=== PATIENT | female | born 1975 | race Asian ===

== ENCOUNTER 2016-04-14 15:58 | Observation (INO) | payer OTHER ==
[~2016-04-14] VITALS: Ht 160 cm; Wt 115.2 kg
[~2016-04-14 15:58] MED LIST: AMLO10TA PO; ASA LO-DOSE81 MG PO; DILTIAZEM240 M1 PO; FERROUS SULF325 M1 PO; FLUC150T PO; FLUC200T PO; FURO20TA67 PO; GLIP10TA55 PO; GRALISE600 MG PO; GUIATUSS100 MG/5 M PO; HEMATINIC/FA OR; HYDR25TA60 PO; HYDROCHLOROT12.5 M1 PO; INSU100I2 SC; LANTUS100 MG/ML SC; LEVO0.0218 PO; LORTAB 7.5-3251 TAB PO; METF100038 PO; METF500T PO; NEXIUM40 M1 PO; OMEP40CA PO; PAXIL10 MG PO; SIMV20TA2 PO; SMZ-TMP DS1 TAB PO; TRAZ50TA36 PO
[2016-04-14 16:59] VITALS: BP 147/86; TEMP 98.3; Ht 160 cm; Wt 115.2 kg
[2016-04-14] MEDS ORDERED: HYDR10TA47 PO (17:44)
[2016-04-14 18:09] LABS: PLATELET COUNT 282 K/uL (152-353)
[2016-04-14 19:10] LABS: POTASSIUM 3.9 mmol/L (3.6-5.2); SODIUM 128 mmol/L (136-145)
[2016-04-14 19:35] LABS: PARTIAL THROMBOPLASTIN TIME 24.7 SECONDS (24.5-33.6)
[2016-04-14 20:00] VITALS: BP 135/73; TEMP 98.1
[2016-04-15] VITALS: BP 119/77; TEMP 98.2
[2016-04-15 04:00] VITALS: BP 148/75; TEMP 98
[2016-04-15 05:01] LABS: PLATELET COUNT 268 K/uL (152-353)
[2016-04-15 05:28] LABS: POTASSIUM 4.8 mmol/L (3.6-5.2); SODIUM 121 mmol/L (136-145)
[2016-04-15 08:00] VITALS: BP 135/80; TEMP 98.3
[2016-04-15 12:00] VITALS: BP 144/95; TEMP 98.4
== END 2016-04-15 16:20 | disposition home or self-care (01) ==
LOC: MED/SURG 15:58
PROVIDERS: ADMIT Family Medicine
DX: R07.9 Chest pain, unspecified (principal); E11.40 Type 2 diabetes mellitus with diabetic neuropathy, unspecified; J30.2 Other seasonal allergic rhinitis; L03.116 Cellulitis of left lower limb
CPT/HCPCS: 36415; 80053; 82550; 82948; 83735; 84484; 85027; 85610; 85730; 93005; 96372; 99220; G0378; G0379; J1650; J1815

== ENCOUNTER 2016-06-10 09:41 | Outpatient (CLI) | payer OTHER ==
[~2016-06-10 09:41] MED LIST changes: +HYDR10TA47 PO
== END 2016-06-10 21:02 | disposition home or self-care (01) ==
LOC: RAD 09:41
DX: M25.551 Pain in right hip (principal)

== ENCOUNTER 2016-07-09 12:36 | Outpatient (CLI) | payer OTHER | END 2016-07-09 19:22 | disposition home or self-care (01) | LOC: US 12:36 | DX: I74.2 Embolism and thrombosis of arteries of the upper extremities (principal) ==

== ENCOUNTER 2016-08-09 13:11 | Observation (INO) | payer OTHER ==
[~2016-08-09] VITALS: Ht 160 cm; Wt 111.8 kg
[2016-08-09 15:34] LABS: PLATELET COUNT 317 K/uL (152-353)
[2016-08-09 15:49] LABS: POTASSIUM 3.1 mmol/L (3.6-5.2); SODIUM 129 mmol/L (136-145)
[2016-08-09 17:28] VITALS: BP 140/95; TEMP 99.2; Ht 160 cm; Wt 111.8 kg
--- NOTE | 2016-08-09 17:50 | NUR ---
1445- PT IN ROOM 1114. NAD NOTED. PT ALERT AND ORIENTED. ASSESSMENT COMPLETE. PT STATES PAIN COMES AND GOES TO L STUMP. PT STATES SHE WAS ON PROSTHESIS A LOT THIS WEEKEND AND STUMP WAS VERY SORE. SEE WOUND ASSESSMENT. CULTURE DONE. IV STARTED TO R UPPER ARM PER ER STAFF. JESUS FROM [facility] CALLED TO SEE PT FOR WOUND CONSULT AND STATES SHE WILL COME SEE PT. INSTRUCTED PT ON NO WEIGHT BEARING ON STUMP AND TO CALL FOR ASSISTANCE. ORIENTED PT TO ROOM AND CONTROLS. PT VERBALIZED UNDERSTANDING. CALL LIGHT WITHIN REACH AND BED LOW.
[2016-08-09 20:00] VITALS: BP 158/99; TEMP 99.4
[2016-08-10] VITALS: BP 136/62; TEMP 99.5
[2016-08-10 04:00] VITALS: BP 133/84; TEMP 99.3
[2016-08-10 05:07] LABS: PLATELET COUNT 288 K/uL (152-353)
[2016-08-10 05:29] LABS: POTASSIUM 3.2 mmol/L (3.6-5.2); SODIUM 128 mmol/L (136-145)
[2016-08-10 08:00] VITALS: BP 148/74; TEMP 98
[2016-08-10 12:00] VITALS: BP 100/46; TEMP 97.8
--- NOTE | 2016-08-10 13:00 | NUR ---
WET DRESSING WITH MULTIDEX APPLIED TO L STUMP WOUND. COVERED WITH DRY FLUFF GAUZE. WRAPPED WITH KERLIX AND SECURED WITH TAPE. WOUND CARE ORDERS GIVEN PER SHIRLEY ANAND RN. STATED OK.
--- NOTE | 2016-08-10 13:15 | NUR ---
SPOKE WITH LUCILA HORTON LPN WITH [facility] DEPT REGARDING VERBAL ORDERS RECEIVED FROM DANIELA TAPIA NP WITH DR RIVER DISCHARGING PATIENT HOME WITH [facility]. CALLED YAJAIRA GRANADOS, RN NURSE WITH [facility] REGARDING ORDERS RECEIVED FOR PATIENT TO BE D/C HOME.
[2016-08-10 16:00] VITALS: BP 140/76; TEMP 98
--- NOTE | 2016-08-10 17:40 | NUR ---
IV ATTEMPTED X 3 UNSUCCESSFUL.
[2016-08-10 20:00] VITALS: BP 103/53; TEMP 98.9
[2016-08-11] VITALS: BP 97/56; TEMP 98.3
[2016-08-11 04:00] VITALS: BP 141/86; TEMP 98.4
--- NOTE | 2016-08-11 06:00 | NUR ---
DR. MCMAHON IN FOR PT EXAM. PT ASLEEP AND SNORING. AT BS.
[2016-08-11 08:00] VITALS: BP 123/82; TEMP 98.5
[2016-08-11 10:23] LABS: PLATELET COUNT 249 K/uL (152-353)
[2016-08-11 10:49] LABS: POTASSIUM 3.4 mmol/L (3.6-5.2); SODIUM 133 mmol/L (136-145)
[2016-08-11 12:00] VITALS: BP 128/75; TEMP 98.6
[2016-08-11 16:00] VITALS: BP 130/85; TEMP 98.6
[2016-08-11 20:00] VITALS: BP 109/53; TEMP 98.4
--- NOTE | 2016-08-11 23:42 | NUR ---
08/11/[id number] DR. MCMAHON GIVE PATIENT ORDERS TO BE DISCHARGED.PATIENT WILL RETURN IN AM FOR OUTPATIENT THERAPY OF ANTIBIOTIC TREATMENT.CC 08/01/16 2230 PT SIGNED DISCHARGE ORDERS.PT OUT VIA PRIVATE WHEELCAHIR WITH .CC
== END 2016-08-11 22:33 | disposition home or self-care (01) ==
LOC: MED/SURG 13:11
PROVIDERS: ADMIT Family Medicine
DX: L03.116 Cellulitis of left lower limb (principal); M54.40 Lumbago with sciatica, unspecified side; T14.8 Other injury of unspecified body region; E11.40 Type 2 diabetes mellitus with diabetic neuropathy, unspecified; B95.62 Methicillin resistant Staphylococcus aureus infection as the cause of diseases classified elsewhere; B96.1 Klebsiella pneumoniae [K. pneumoniae] as the cause of diseases classified elsewhere; B95.4 Other streptococcus as the cause of diseases classified elsewhere
CPT/HCPCS: 36415; 80053; 80202; 82948; 83735; 85027; 87040; 87070; 87077; 87185; 87186; 87205; 96365; 96366; 96367; 96372; 96375; 99220; G0378; G0379; J2175; J2550; J3370

== ENCOUNTER 2016-09-02 15:37 | Inpatient (IN) | payer OTHER ==
[~2016-09-02] VITALS: Ht 160 cm; Wt 110.2 kg
[2016-09-02 16:01] VITALS: BP 140/86; TEMP 99
[2016-09-02 17:10] VITALS: BP 133/71; TEMP 99
[2016-09-02 17:10] LABS: PLATELET COUNT 508 K/uL (152-353)
[2016-09-02 17:23] LABS: POTASSIUM 3.7 mmol/L (3.6-5.2); SODIUM 130 mmol/L (136-145)
[2016-09-02 18:33] VITALS: BP 130/64; TEMP 98.8
[2016-09-02 23:30] VITALS: BP 121/74; TEMP 99.4; Ht 160 cm; Wt 110.2 kg
[2016-09-03] VITALS: BP 107/49; TEMP 98.1
[2016-09-03 04:00] VITALS: BP 95/59; TEMP 97.8
[2016-09-03 08:00] VITALS: BP 132/69; TEMP 98
[2016-09-03 11:25] LABS: PLATELET COUNT 482 K/uL (152-353)
[2016-09-03 12:00] VITALS: BP 134/79; TEMP 98
[2016-09-03 12:46] LABS: POTASSIUM 3.6 mmol/L (3.6-5.2); SODIUM 131 mmol/L (136-145)
[2016-09-03 16:00] VITALS: BP 136/75; TEMP 96.8
[2016-09-03 20:00] VITALS: BP 139/82; TEMP 98
[2016-09-04] VITALS: BP 121/78; TEMP 97.8
[2016-09-04 04:00] VITALS: BP 117/58; TEMP 97.7
[2016-09-04 06:05] LABS: POTASSIUM 3.4 mmol/L (3.6-5.2); SODIUM 132 mmol/L (136-145)
[2016-09-04 06:31] LABS: PLATELET COUNT 440 K/uL (152-353)
[2016-09-04 08:00] VITALS: BP 118/71; TEMP 98.3
[2016-09-04 12:00] VITALS: BP 129/88; TEMP 96.6
[2016-09-04 16:00] VITALS: BP 131/84; TEMP 97.6
[2016-09-04 20:00] VITALS: BP 153/95; TEMP 98.3
[2016-09-05] VITALS: BP 123/62; TEMP 98.9
[2016-09-05 04:00] VITALS: TEMP 98
[2016-09-05 05:25] LABS: PLATELET COUNT 458 K/uL (152-353)
[2016-09-05 05:43] LABS: SODIUM 133 mmol/L (136-145)
[2016-09-05 08:28] VITALS: BP 136/66; TEMP 97.5
[2016-09-05 12:00] VITALS: BP 126/84; TEMP 98
[2016-09-05 16:00] VITALS: BP 146/77; TEMP 98.3
[2016-09-05 20:00] VITALS: BP 149/95; TEMP 99
[2016-09-06] VITALS: BP 106/55; TEMP 98.7
[2016-09-06 04:00] VITALS: BP 129/64; TEMP 98.5
[2016-09-06 06:02] LABS: PLATELET COUNT 435 K/uL (152-353)
[2016-09-06 06:34] LABS: POTASSIUM 3.6 mmol/L (3.6-5.2); SODIUM 132 mmol/L (136-145)
[2016-09-06 08:00] VITALS: BP 136/85; TEMP 98.3
[2016-09-06 12:00] VITALS: BP 154/64; TEMP 97.8
[2016-09-06 16:00] VITALS: BP 145/79; TEMP 98
[2016-09-06 20:20] VITALS: BP 114/57; TEMP 98.8
[2016-09-07] VITALS: BP 145/56; TEMP 98.3
[2016-09-07 04:00] VITALS: BP 157/103; TEMP 97.6
[2016-09-07 05:12] LABS: PLATELET COUNT 484 K/uL (152-353)
[2016-09-07 05:31] LABS: SODIUM 132 mmol/L (136-145)
[2016-09-07 08:00] VITALS: BP 134/69; TEMP 97.6
[2016-09-07 12:00] VITALS: BP 133/67; TEMP 98.6
== END 2016-09-07 16:45 | disposition home or self-care (01) | DRG 638 ==
LOC: ED 15:37 → MED/SURG 18:40
PROVIDERS: Emergency Medicine
PROC: 02HV33Z Insertion of Infusion Device into Superior Vena Cava, Percutaneous Approach (ICD-10-PCS; principal; 2016-09-07)
DX: E11.628 Type 2 diabetes mellitus with other skin complications (principal); L03.116 Cellulitis of left lower limb; N39.0 Urinary tract infection, site not specified; M86.8X8 Other osteomyelitis, other site; B95.62 Methicillin resistant Staphylococcus aureus infection as the cause of diseases classified elsewhere; Z79.4 Long term (current) use of insulin; B96.20 Unspecified Escherichia coli [E. coli] as the cause of diseases classified elsewhere; I10 Essential (primary) hypertension; E11.69 Type 2 diabetes mellitus with other specified complication
CPT/HCPCS: 36415; 36571; 80048; 80053; 80202; 81000; 82947; 82948; 83036; 83605; 83735; 85027; 85651; 87040; 87070; 87077; 87086; 87088; 87185; 87186; 87205; 96372; 99283; A9576; C1751; J1200; J1650; J1885; J2405; J3370; J3490

== ENCOUNTER 2016-09-08 08:59 | Outpatient (CLI) | payer OTHER ==
[~2016-09-08] VITALS: Ht 160 cm; Wt 109.8 kg
== END 2016-09-08 23:20 | disposition home or self-care (01) ==
LOC: INF 08:59
DX: M86.8X8 Other osteomyelitis, other site (principal)
CPT/HCPCS: 96365; 96366; 96375; J1642; J2001; J3370

== ENCOUNTER 2016-09-09 08:07 | Outpatient (CLI) | payer OTHER ==
[~2016-09-09] VITALS: Ht 160 cm; Wt 109.8 kg
== END 2016-09-09 19:59 | disposition home or self-care (01) ==
LOC: INF 08:07
DX: M86.8X8 Other osteomyelitis, other site (principal)
CPT/HCPCS: 36591; 80202; 96365; 96366; 96375; J1642; J3370

== ENCOUNTER 2016-09-10 08:48 | Outpatient (CLI) | payer OTHER ==
[~2016-09-10] VITALS: Ht 160 cm; Wt 109.8 kg
== END 2016-09-10 22:56 | disposition home or self-care (01) ==
LOC: INF 08:48
DX: M86.8X8 Other osteomyelitis, other site (principal)
CPT/HCPCS: 96365; 96366; 96375; 96376; J1642; J3370

== ENCOUNTER 2016-09-11 08:32 | Outpatient (CLI) | payer OTHER | END 2016-09-11 19:06 | disposition home or self-care (01) | LOC: INF 08:32 | DX: M86.8X8 Other osteomyelitis, other site (principal) | CPT/HCPCS: 96365; 96366; 96375 ==

== ENCOUNTER 2016-09-12 08:31 | Outpatient (CLI) | payer OTHER | END 2016-09-12 18:59 | disposition home or self-care (01) | LOC: INF 08:31 | DX: M86.8X8 Other osteomyelitis, other site (principal) | CPT/HCPCS: 96365; 96366; 96375; J1642 ==

== ENCOUNTER 2016-09-13 07:39 | Outpatient (CLI) | payer OTHER ==
[~2016-09-13] VITALS: Ht 160 cm; Wt 109.8 kg
== END 2016-09-13 22:30 | disposition home or self-care (01) ==
LOC: LAB 07:39 → INF 07:39
DX: M86.8X8 Other osteomyelitis, other site (principal)
CPT/HCPCS: 96365; 96366; 96375; 96376; J1642; J3370

== ENCOUNTER 2016-09-14 07:22 | Outpatient (CLI) | payer OTHER ==
[~2016-09-14] VITALS: Ht 160 cm; Wt 109.8 kg
== END 2016-09-14 22:00 | disposition home or self-care (01) ==
LOC: INF 07:22
DX: M86.8X8 Other osteomyelitis, other site (principal)
CPT/HCPCS: 36415; 80202; 96365; 96366; 96375; 96376; J1642; J3370

== ENCOUNTER 2016-09-15 08:05 | Outpatient (CLI) | payer OTHER | END 2016-09-15 19:30 | disposition home or self-care (01) | LOC: INF 08:05 | DX: M86.8X8 Other osteomyelitis, other site (principal) | CPT/HCPCS: 96365; 96366; 96375; 96376; J3370 ==

== ENCOUNTER 2016-09-16 08:14 | Outpatient (CLI) | payer OTHER ==
[~2016-09-16] VITALS: Ht 160 cm; Wt 109.8 kg
[2016-09-16 09:45] LABS: PLATELET COUNT 378 K/uL (152-353)
[2016-09-16 09:55] LABS: POTASSIUM 3.7 mmol/L (3.6-5.2); SODIUM 134 mmol/L (136-145)
== END 2016-09-16 09:57 | disposition home or self-care (01) ==
LOC: INF 08:14
PROVIDERS: Internal Medicine
DX: M86.8X8 Other osteomyelitis, other site (principal)
CPT/HCPCS: 36591; 80048; 80202; 85027; J1642; J3370

== ENCOUNTER 2016-09-17 08:06 | Outpatient (CLI) | payer OTHER ==
[~2016-09-17] VITALS: Ht 160 cm; Wt 109.8 kg
== END 2016-09-17 19:03 | disposition home or self-care (01) ==
LOC: INF 08:06
DX: M86.8X8 Other osteomyelitis, other site (principal)
CPT/HCPCS: 36415; 80202; 96365; 96366; 96375; 96376; J3370

== ENCOUNTER 2016-09-18 07:49 | Outpatient (CLI) | payer OTHER ==
[~2016-09-18] VITALS: Ht 160 cm; Wt 109.8 kg
== END 2016-09-18 22:59 | disposition home or self-care (01) ==
LOC: INF 07:49
DX: M86.8X8 Other osteomyelitis, other site (principal)
CPT/HCPCS: 36415; 80202; 96365; 96366; 96375; 96376; J1642; J3370

== ENCOUNTER 2016-09-19 07:43 | Outpatient (CLI) | payer OTHER ==
[~2016-09-19] VITALS: Ht 160 cm; Wt 109.8 kg
== END 2016-09-19 09:40 | disposition home or self-care (01) ==
LOC: INF 07:43
DX: M86.8X8 Other osteomyelitis, other site (principal)
CPT/HCPCS: 96365; 96366; 96375; 96376; J1642; J3370

== ENCOUNTER 2016-09-20 08:05 | Outpatient (CLI) | payer OTHER ==
[~2016-09-20] VITALS: Ht 160 cm; Wt 109.8 kg
== END 2016-09-20 22:00 | disposition home or self-care (01) ==
LOC: INF 08:05
DX: M86.8X8 Other osteomyelitis, other site (principal)
CPT/HCPCS: 96365; 96366; 96375; J1642; J3370

== ENCOUNTER 2016-09-21 07:44 | Outpatient (CLI) | payer OTHER ==
[~2016-09-21] VITALS: Ht 160 cm; Wt 109.8 kg
== END 2016-09-21 09:40 | disposition home or self-care (01) ==
LOC: INF 07:44
DX: M86.8X8 Other osteomyelitis, other site (principal)
CPT/HCPCS: J1642; J3370

== ENCOUNTER 2016-09-22 13:15 | Outpatient (CLI) | payer OTHER ==
[2016-09-22 13:35] VITALS: BP 131/85; TEMP 98.3
== END 2016-09-22 19:05 | disposition home or self-care (01) ==
LOC: INF 13:15
DX: M86.8X8 Other osteomyelitis, other site (principal)
CPT/HCPCS: 87070

== ENCOUNTER 2016-10-07 15:00 | Outpatient (CLI) | payer OTHER ==
[2016-10-07 15:45] LABS: PLATELET COUNT 314 K/uL (152-353)
[2016-10-07 15:48] LABS: POTASSIUM 2.7 mmol/L (3.6-5.2); SODIUM 132 mmol/L (136-145)
== END 2016-10-07 19:19 | disposition home or self-care (01) ==
LOC: LABW 15:00
PROVIDERS: Surgery Vascular Surgery
DX: Z01.810 Encounter for preprocedural cardiovascular examination (principal); Z01.811 Encounter for preprocedural respiratory examination; Z01.812 Encounter for preprocedural laboratory examination
CPT/HCPCS: 36415; 80048; 85027; 93005

== ENCOUNTER 2016-11-12 20:12 | Emergency (ER) | payer OTHER ==
[~2016-11-12] VITALS: Ht 160 cm; Wt 111.6 kg
[2016-11-12 20:30] VITALS: BP 118/110; TEMP 98
== END 2016-11-12 21:23 | disposition home or self-care (01) ==
LOC: ED 20:12
DX: R21 Rash and other nonspecific skin eruption (principal)
CPT/HCPCS: 99281

== ENCOUNTER 2016-12-02 03:56 | Emergency (ER) | payer OTHER ==
[~2016-12-02] VITALS: Ht 160 cm; Wt 113.4 kg
[2016-12-02 04:19] VITALS: TEMP 97.9
[2016-12-02 05:15] LABS: PLATELET COUNT 340 K/uL (152-353)
[2016-12-02 05:26] LABS: POTASSIUM 3.7 mmol/L (3.6-5.2); SODIUM 129 mmol/L (136-145)
[2016-12-02 05:45] LABS: PARTIAL THROMBOPLASTIN TIME 25.1 SECONDS (24.5-33.6)
[2016-12-02 09:58] VITALS: BP 132/82
== END 2016-12-02 10:02 | disposition home or self-care (01) ==
LOC: ED 03:56
PROVIDERS: Specialist
DX: D25.9 Leiomyoma of uterus, unspecified (principal); E11.9 Type 2 diabetes mellitus without complications
CPT/HCPCS: 36415; 74022; 80048; 81002; 85027; 85610; 85730; 96374; 96375; 99284; J2175; J2550; J3490

== ENCOUNTER 2016-12-30 11:29 | Emergency (ER) | payer OTHER ==
[~2016-12-30] VITALS: Ht 160 cm; Wt 118.4 kg
[2016-12-30 11:45] VITALS: TEMP 98.2
[2016-12-30 12:33] VITALS: BP 162/96
== END 2016-12-30 12:34 | disposition home or self-care (01) ==
LOC: ED 11:29
DX: S60.812A Abrasion of left wrist, initial encounter (principal); W54.0XXA Bitten by dog, initial encounter; Y93.F2 Activity, caregiving, lifting; Y92.018 Other place in single-family (private) house as the place of occurrence of the external cause; Y99.0 Civilian activity done for income or pay
CPT/HCPCS: 99282

== ENCOUNTER 2017-01-26 16:10 | Outpatient (CLI) | payer OTHER | END 2017-01-26 19:03 | disposition home or self-care (01) | LOC: RAD 16:10 | DX: M25.551 Pain in right hip (principal) ==

== ENCOUNTER 2017-02-21 14:30 | Outpatient (CLI) | payer OTHER | END 2017-02-21 15:30 | disposition home or self-care (01) | LOC: RAD 14:30 | DX: M16.0 Bilateral primary osteoarthritis of hip (principal); Z79.899 Other long term (current) drug therapy; Z13.820 Encounter for screening for osteoporosis; Z78.0 Asymptomatic menopausal state ==

== ENCOUNTER 2017-03-25 11:27 | Observation (INO) | payer OTHER ==
[~2017-03-25] VITALS: Ht 160 cm; Wt 114.9 kg
[2017-03-25] VITALS (9 sets, daily range): BP systolic 141–194; BP diastolic 73–146; TEMP 98.2–99.7; Ht 160 cm; Wt 114.9 kg
[2017-03-25 13:52] LABS: PLATELET COUNT 265 K/uL (152-353); POTASSIUM 3.6 mmol/L (3.6-5.2); SODIUM 132 mmol/L (136-145)
[2017-03-25 14:05] LABS: PARTIAL THROMBOPLASTIN TIME 25.2 SECONDS (24.5-33.6)
[2017-03-25] MEDS ORDERED: NYST100010 EX (18:11)
[2017-03-25] MEDS ORDERED: TRIA0.1C19 TOP (18:11)
[2017-03-25] MEDS ORDERED: CETIRIZINE10 MG PO (18:12)
[2017-03-25] MEDS ORDERED: DILTIAZEM HCL180 M2 PO (18:12)
[2017-03-26] VITALS: BP 132/65; TEMP 99.6
[2017-03-26 04:00] VITALS: BP 164/100; TEMP 98.6
--- NOTE | 2017-03-26 05:19 | NUR ---
PATIENT HAVING NAUSEA. GLUCOSE CHECK 202. IV PRN MEDICATION GIVEN AT THIS TIME.
--- NOTE | 2017-03-26 05:36 | NUR ---
PATIENT COUGHING THICK LIGHT GREEN SPUTUM INDUCING EMESIS. PRN PHENERGAN GIVEN ORDERED PATIENT TOLERATED WELL.
--- NOTE | 2017-03-26 05:53 | NUR ---
PATIENT NOTED HOARSE WHEN SHE TALKS. ASSESSED THROAT, +2-+3 TONSILS NOTED. NO EXUDATE NOTED. PATIENT DENIES ANY PAIN WHEN SWALLOWING.
[2017-03-26 08:00] VITALS: BP 120/67; TEMP 98.7
[2017-03-26 09:13] LABS: PLATELET COUNT 245 K/uL (152-353)
[2017-03-26 09:58] LABS: POTASSIUM 3.3 mmol/L (3.6-5.2); SODIUM 134 mmol/L (136-145)
[2017-03-26 12:00] VITALS: BP 124/70; TEMP 98.6
[2017-03-26 16:00] VITALS: BP 126/63; TEMP 99.3
--- NOTE | 2017-03-26 17:10 | NUR ---
IV D/C'DJr FU WITH DR. MCMAHON IN 3-5 DAYS. PRESCRIPTION FOR CARAFATE GIVEN. PT HAS NO FUTHER QUESTIONS. PT WHEELED OUT VIA W/C AT THIS TIME. NO PROBLEMS NOTED.
== END 2017-03-26 17:10 | disposition home or self-care (01) ==
LOC: ED 11:27 → MED/SURG 15:00
PROVIDERS: ADMIT Emergency Medicine
DX: R07.89 Other chest pain (principal); E03.8 Other specified hypothyroidism; K21.9 Gastro-esophageal reflux disease without esophagitis; E10.9 Type 1 diabetes mellitus without complications; Z79.4 Long term (current) use of insulin; F41.8 Other specified anxiety disorders
CPT/HCPCS: 36415; 80053; 81000; 82550; 82553; 82947; 82948; 83735; 84443; 84484; 85027; 85610; 85730; 93005; 96372; 96374; 96375; 99220; 99284; G0378; J1815; J1885; J2360

== ENCOUNTER 2017-05-27 13:09 | Outpatient (CLI) | payer OTHER ==
[~2017-05-27 13:09] MED LIST changes: +CETIRIZINE10 MG PO; +DILTIAZEM HCL180 M2 PO; +NYST100010 EX; +TRIA0.1C19 TOP
[2017-05-27 13:50] LABS: PLATELET COUNT 303 K/uL (152-353)
[2017-05-27 14:31] LABS: POTASSIUM 3.7 mmol/L (3.6-5.2)
== END 2017-05-27 21:28 | disposition home or self-care (01) ==
LOC: LABW 13:09
PROVIDERS: Family Medicine
DX: L02.419 Cutaneous abscess of limb, unspecified (principal)
CPT/HCPCS: 36415; 80053; 85027; 87040; 87070; 87205

== ENCOUNTER 2017-06-03 13:27 | Outpatient (CLI) | payer OTHER | END 2017-06-03 18:00 | disposition home or self-care (01) | LOC: RAD 13:27 | DX: R05 Cough (principal) ==

== ENCOUNTER 2017-06-26 05:21 | Emergency (ER) | payer OTHER ==
[~2017-06-26] VITALS: Ht 160 cm; Wt 116.1 kg
[2017-06-26 06:09] VITALS: BP 171/109; TEMP 98.7
== END 2017-06-26 06:12 | disposition home or self-care (01) ==
LOC: ED 05:21
DX: M79.604 Pain in right leg (principal); R22.41 Localized swelling, mass and lump, right lower limb
CPT/HCPCS: 99281

== ENCOUNTER 2017-07-21 00:18 | Emergency (ER) | payer OTHER ==
[~2017-07-21] VITALS: Ht 160 cm; Wt 111.6 kg
[2017-07-21 00:21] VITALS: BP 154/75; TEMP 99.1
[2017-07-21 01:08] LABS: PLATELET COUNT 300 K/uL (152-353)
[2017-07-21 01:21] LABS: POTASSIUM 3.8 mmol/L (3.6-5.2)
== END 2017-07-21 01:56 | disposition home or self-care (01) ==
LOC: ED 00:18
DX: T87.81 Dehiscence of amputation stump (principal)
CPT/HCPCS: 36415; 80053; 83605; 85027; 87070; 87205; 99283

== ENCOUNTER 2017-08-05 13:42 | Emergency (ER) | payer OTHER | END 2017-08-05 13:55 | disposition home or self-care (01) | LOC: ED 13:42 | DX: L08.89 Other specified local infections of the skin and subcutaneous tissue (principal) | CPT/HCPCS: 99281 ==

== ENCOUNTER 2017-12-07 11:24 | Outpatient (CLI) | payer OTHER ==
[2017-12-07 12:52] LABS: POTASSIUM 3.3 mmol/L (3.6-5.2)
== END 2017-12-07 19:40 | disposition home or self-care (01) ==
LOC: RAD 11:24
PROVIDERS: Family Medicine
DX: M25.461 Effusion, right knee (principal)
CPT/HCPCS: 36415; 80053; 84550; 85651; 86140; 87040

== ENCOUNTER 2018-01-09 11:05 | Emergency (ER) | payer OTHER ==
[~2018-01-09] VITALS: Ht 160 cm; Wt 112.9 kg
[2018-01-09 12:24] VITALS: BP 153/90; TEMP 97.7
== END 2018-01-09 12:25 | disposition home or self-care (01) ==
LOC: ED 11:05
DX: T81.49XA Infection following a procedure, other surgical site, initial encounter (principal); Z89.512 Acquired absence of left leg below knee; W05.0XXA Fall from non-moving wheelchair, initial encounter; Y92.89 Other specified places as the place of occurrence of the external cause
CPT/HCPCS: 99282; J7040

== ENCOUNTER 2018-02-07 11:18 | Outpatient (CLI) | payer OTHER ==
[2018-02-07 20:39] LABS: PLATELET COUNT 286 K/uL (152-353)
[2018-02-07 20:59] LABS: POTASSIUM 4.1 mmol/L (3.6-5.2)
== END 2018-02-07 22:26 | disposition home or self-care (01) ==
LOC: INF 11:18
PROVIDERS: Family Medicine
DX: L03.119 Cellulitis of unspecified part of limb (principal)
CPT/HCPCS: 36415; 36591; 80053; 83605; 85027; 96365; J3370

== ENCOUNTER 2018-02-08 07:44 | Outpatient (CLI) | payer OTHER ==
[~2018-02-08] VITALS: Ht 160 cm; Wt 127.0 kg
== END 2018-02-08 19:34 | disposition home or self-care (01) ==
LOC: INF 07:44
DX: L03.119 Cellulitis of unspecified part of limb (principal)
CPT/HCPCS: 96365; 96366; J3370

== ENCOUNTER 2018-02-09 07:54 | Outpatient (CLI) | payer OTHER | END 2018-02-09 19:09 | disposition home or self-care (01) | LOC: INF 07:54 | DX: L03.119 Cellulitis of unspecified part of limb (principal) | CPT/HCPCS: 96365; 96366; J3370 ==

== ENCOUNTER 2018-02-10 07:56 | Outpatient (CLI) | payer OTHER | END 2018-02-10 19:07 | disposition home or self-care (01) | LOC: INF 07:56 | DX: L03.119 Cellulitis of unspecified part of limb (principal) | CPT/HCPCS: 96365; 96366; J3370 ==

== ENCOUNTER 2018-02-11 08:12 | Outpatient (CLI) | payer OTHER | END 2018-02-11 22:17 | disposition home or self-care (01) | LOC: INF 08:12 | DX: L03.119 Cellulitis of unspecified part of limb (principal) | CPT/HCPCS: 96365; 96366; J3370 ==

== ENCOUNTER 2018-02-12 08:19 | Outpatient (CLI) | payer OTHER ==
[~2018-02-12] VITALS: Ht 160 cm; Wt 115.7 kg
== END 2018-02-12 21:31 | disposition home or self-care (01) ==
LOC: INF 08:19
DX: L03.119 Cellulitis of unspecified part of limb (principal)
CPT/HCPCS: 36415; 80202; J3370

== ENCOUNTER 2018-03-06 07:40 | Outpatient (CLI) | payer OTHER | END 2018-03-06 18:59 | disposition home or self-care (01) | LOC: MRI 07:40 | DX: M54.17 Radiculopathy, lumbosacral region (principal) ==

== ENCOUNTER 2018-06-05 13:19 | Outpatient (CLI) | payer OTHER ==
[2018-06-05 14:20] LABS: PLATELET COUNT 381 K/uL (152-353)
[2018-06-05 14:33] LABS: POTASSIUM 4.1 mmol/L (3.6-5.2)
== END 2018-06-05 22:46 | disposition home or self-care (01) ==
LOC: LABW 13:19
PROVIDERS: Specialist
DX: R07.2 Precordial pain (principal); Z01.810 Encounter for preprocedural cardiovascular examination; R93.1 Abnormal findings on diagnostic imaging of heart and coronary circulation
CPT/HCPCS: 36415; 80053; 85027

== ENCOUNTER 2018-06-24 14:47 | Emergency (ER) | payer OTHER ==
[~2018-06-24] VITALS: Ht 160 cm; Wt 116.1 kg
[2018-06-24 16:15] VITALS: BP 210/98; TEMP 97.7
== END 2018-06-24 16:15 | disposition home or self-care (01) ==
LOC: ED 14:47
DX: J01.80 Other acute sinusitis (principal); J30.89 Other allergic rhinitis; I10 Essential (primary) hypertension
CPT/HCPCS: 96372; 99283; J0696; J1200

== ENCOUNTER 2018-07-13 08:54 | Outpatient (CLI) | payer OTHER | END 2018-07-13 21:00 | disposition home or self-care (01) | LOC: CT 08:54 | DX: J32.8 Other chronic sinusitis (principal) ==

== ENCOUNTER 2018-08-06 14:07 | Emergency (ER) | payer OTHER ==
[~2018-08-06] VITALS: Ht 160 cm; Wt 125.2 kg
[2018-08-06 14:16] VITALS: BP 139/78; TEMP 97.8
== END 2018-08-06 16:06 | disposition home or self-care (01) ==
LOC: ED 14:07
DX: M54.89 Other dorsalgia (principal); G89.29 Other chronic pain; M19.90 Unspecified osteoarthritis, unspecified site
CPT/HCPCS: 96372; 99283; J1885

== ENCOUNTER 2018-08-07 15:08 | Outpatient (CLI) | payer OTHER ==
[~2018-08-07] VITALS: Ht 160 cm; Wt 124.3 kg
[2018-08-07 16:54] LABS: PLATELET COUNT 291 K/uL (152-353)
[2018-08-07 17:00] VITALS: BP 170/83; TEMP 98.4
[2018-08-07 17:33] LABS: POTASSIUM 3.7 mmol/L (3.6-5.2)
== END 2018-08-07 19:22 | disposition home or self-care (01) ==
LOC: INF 15:08
PROVIDERS: Family Medicine
DX: E86.0 Dehydration (principal)
CPT/HCPCS: 80053; 85027; 96360; 96361

== ENCOUNTER 2018-08-08 09:05 | Outpatient (CLI) | payer OTHER | END 2018-08-08 19:19 | disposition home or self-care (01) | LOC: US 09:05 | DX: R33.8 Other retention of urine (principal) ==

== ENCOUNTER 2018-08-17 07:56 | Outpatient (CLI) | payer OTHER | END 2018-08-17 19:14 | disposition home or self-care (01) | LOC: NM 07:56 | DX: R11.2 Nausea with vomiting, unspecified (principal); R33.8 Other retention of urine | CPT/HCPCS: A9541 ==

== ENCOUNTER 2018-08-24 11:31 | Outpatient (CLI) | payer OTHER | END 2018-08-24 23:48 | disposition home or self-care (01) | LOC: RAD 11:31 | DX: R05 Cough (principal) ==

== ENCOUNTER 2018-08-26 12:27 | Outpatient (CLI) | payer OTHER | END 2018-08-26 22:38 | disposition home or self-care (01) | LOC: LAB 12:27 | DX: E11.22 Type 2 diabetes mellitus with diabetic chronic kidney disease (principal) | CPT/HCPCS: 84156 ==

== ENCOUNTER 2018-10-10 10:20 | Outpatient (CLI) | payer OTHER ==
[2018-10-10 10:51] LABS: PLATELET COUNT 361 K/uL (152-353)
[2018-10-10 11:20] LABS: POTASSIUM 3.5 mmol/L (3.6-5.2)
== END 2018-10-10 22:30 | disposition home or self-care (01) ==
LOC: LABW 10:20
PROVIDERS: Internal Medicine
DX: N18.3 Chronic kidney disease, stage 3 (moderate) (principal); E11.22 Type 2 diabetes mellitus with diabetic chronic kidney disease; E03.8 Other specified hypothyroidism; R80.1 Persistent proteinuria, unspecified; D64.89 Other specified anemias
CPT/HCPCS: 36415; 80053; 81000; 82306; 82330; 82570; 82607; 82652; 82728; 82746; 83036; 83516; 83540; 83550; 83735; 83970; 84100; 84155; 84439; 84443; 85027; 85651; 86225; 86255; 87077; 87086; 87088; 87186

== ENCOUNTER 2018-11-14 23:24 | Observation (INO) | payer OTHER ==
[~2018-11-14] VITALS: Ht 160 cm; Wt 120.3 kg
[2018-11-14 23:35] VITALS: BP 95/52; TEMP 97.5
[2018-11-14] MEDS ORDERED: HUMALOG JU100 UNIT/M SC (23:55)
[2018-11-14] MEDS ORDERED: TRESIBA FL200 UNIT/M SC (23:55)
[2018-11-14] MEDS ORDERED: HYDROXYZINE HYD25 MG PO (23:56)
[2018-11-14] MEDS ORDERED: GRALISE600 MG PO (23:56)
[2018-11-14] MEDS ORDERED: NUCYNTA ER100 MG PO (23:56)
[2018-11-14] MEDS ORDERED: CHLORTHALID25 MG PO (23:57)
[2018-11-14] MEDS ORDERED: DIPH25CA90 PO (23:57)
[2018-11-14] MEDS ORDERED: COZAAR100 MG PO (23:57)
[2018-11-14] MEDS ORDERED: METOCLOPRAM5 MG PO (23:58)
[2018-11-14] MEDS ORDERED: CARTIA XT180 MG PO (23:58)
[2018-11-14] MEDS ORDERED: PANTOPRAZOLE 40MG TA PO (23:59)
[2018-11-15 00:39] LABS: PLATELET COUNT 300 K/uL (152-353)
[2018-11-15 01:07] LABS: POTASSIUM 3.1 mmol/L (3.6-5.2); SODIUM 133 mmol/L (136-145)
[2018-11-15 01:10] LABS: PARTIAL THROMBOPLASTIN TIME 25.7 SECONDS (24.5-33.6)
[2018-11-15 03:00] VITALS: BP 123/73; TEMP 99; Ht 160 cm; Wt 120.3 kg
[2018-11-15 04:00] VITALS: BP 123/73; TEMP 99
[2018-11-15 08:00] VITALS: BP 101/51; TEMP 98.2
[2018-11-15 09:03] LABS: POTASSIUM 3.4 mmol/L (3.6-5.2)
[2018-11-15 09:05] LABS: PLATELET COUNT 300 K/uL (152-353)
[2018-11-15] MEDS ORDERED: HUMALOG KW200 UNIT/M SC (09:07)
[2018-11-15 12:00] VITALS: BP 118/50; TEMP 97.4
== END 2018-11-15 15:30 | disposition home or self-care (01) ==
LOC: ED 23:24 → MED/SURG 11-15 01:40
PROVIDERS: Family Medicine; ADMIT Hospitalist
DX: N39.0 Urinary tract infection, site not specified (principal); E86.0 Dehydration; N28.9 Disorder of kidney and ureter, unspecified; R00.0 Tachycardia, unspecified; R53.1 Weakness; R42 Dizziness and giddiness; I10 Essential (primary) hypertension; E11.9 Type 2 diabetes mellitus without complications; Z89.512 Acquired absence of left leg below knee; I51.7 Cardiomegaly; E78.00 Pure hypercholesterolemia, unspecified; R19.7 Diarrhea, unspecified
CPT/HCPCS: 36415; 80053; 80320; 81000; 81025; 83605; 83880; 84484; 85027; 85610; 85730; 87077; 87086; 87088; 87186; 93005; 96360; 96365; 96366; 96372; 99220; 99284; G0378; J1650

== ENCOUNTER 2018-11-27 12:55 | Outpatient (CLI) | payer OTHER ==
[~2018-11-27 12:55] MED LIST changes: +CARTIA XT180 MG PO; +CHLORTHALID25 MG PO; +COZAAR100 MG PO; +DIPH25CA90 PO; +HUMALOG JU100 UNIT/M SC; +HUMALOG KW200 UNIT/M SC; +HYDROXYZINE HYD25 MG PO; +METOCLOPRAM5 MG PO; +NUCYNTA ER100 MG PO; +PANTOPRAZOLE 40MG TA PO; +TRESIBA FL200 UNIT/M SC
== END 2018-11-27 22:40 | disposition home or self-care (01) ==
LOC: CT 12:55
DX: R20.2 Paresthesia of skin (principal)

== ENCOUNTER 2018-12-18 13:21 | Outpatient (CLI) | payer OTHER | END 2018-12-18 19:44 | disposition home or self-care (01) | LOC: CT 13:21 | DX: R20.2 Paresthesia of skin (principal) ==

== ENCOUNTER 2019-01-16 20:34 | Emergency (ER) | payer OTHER ==
[~2019-01-16] VITALS: Ht 160 cm; Wt 120.2 kg
[2019-01-16 21:39] VITALS: BP 179/87; TEMP 98.8
== END 2019-01-16 21:39 | disposition home or self-care (01) ==
LOC: ED 20:34
DX: S33.5XXA Sprain of ligaments of lumbar spine, initial encounter (principal); W19.XXXA Unspecified fall, initial encounter; Y93.89 Activity, other specified; Y92.018 Other place in single-family (private) house as the place of occurrence of the external cause
CPT/HCPCS: 96372; 99283

== ENCOUNTER 2019-01-22 15:42 | Outpatient (CLI) | payer OTHER ==
[2019-01-22 16:40] LABS: PLATELET COUNT 295 K/uL (152-353)
[2019-01-22 16:56] LABS: POTASSIUM 3.6 mmol/L (3.6-5.2)
== END 2019-01-22 19:10 | disposition home or self-care (01) ==
LOC: LABW 15:42
PROVIDERS: Internal Medicine
DX: E03.8 Other specified hypothyroidism (principal); E11.22 Type 2 diabetes mellitus with diabetic chronic kidney disease; N18.3 Chronic kidney disease, stage 3 (moderate); R80.1 Persistent proteinuria, unspecified; D64.89 Other specified anemias; E53.8 Deficiency of other specified B group vitamins
CPT/HCPCS: 36415; 80053; 81000; 82306; 82330; 82570; 82607; 82652; 82728; 82746; 83036; 83516; 83540; 83550; 83735; 83970; 84100; 84155; 84439; 84443; 85027; 85651; 86038; 86225; 86235; 86255; 87077; 87086; 87088; 87186

== ENCOUNTER 2019-02-02 12:03 | Outpatient (CLI) | payer OTHER | END 2019-02-02 19:12 | disposition home or self-care (01) | LOC: RAD 12:03 | DX: M25.561 Pain in right knee (principal) ==

== ENCOUNTER 2019-02-12 12:59 | Outpatient (CLI) | payer OTHER | END 2019-02-12 19:27 | disposition home or self-care (01) | LOC: RAD 12:59 | DX: M25.551 Pain in right hip (principal) ==

== ENCOUNTER 2019-02-26 13:52 | Outpatient (CLI) | payer OTHER | END 2019-02-26 19:06 | disposition home or self-care (01) | LOC: CT 13:52 | DX: M25.551 Pain in right hip (principal) ==

== ENCOUNTER 2019-03-15 00:26 | Emergency (ER) | payer OTHER ==
[~2019-03-15] VITALS: Ht 160 cm; Wt 128.8 kg
[2019-03-15 00:26] VITALS: BP 133/64; TEMP 98.8
[2019-03-15 01:16] LABS: PLATELET COUNT 271 K/uL (152-353)
[2019-03-15 01:33] LABS: POTASSIUM 3.1 mmol/L (3.6-5.2)
== END 2019-03-15 01:19 | disposition home or self-care (01) ==
LOC: ED 00:26
PROVIDERS: Emergency Medicine
DX: R10.31 Right lower quadrant pain (principal)
CPT/HCPCS: 36415; 80053; 82150; 83690; 85027; 96374; 99284; J1885

== ENCOUNTER 2019-03-20 14:34 | Outpatient (CLI) | payer OTHER | END 2019-03-20 20:12 | disposition home or self-care (01) | LOC: LABW 14:34 | DX: R19.03 Right lower quadrant abdominal swelling, mass and lump (principal); D39.11 Neoplasm of uncertain behavior of right ovary; R79.89 Other specified abnormal findings of blood chemistry | CPT/HCPCS: 36415; 82378; 86304 ==

== ENCOUNTER 2019-03-26 14:13 | Outpatient (CLI) | payer OTHER ==
[2019-03-26 14:38] LABS: PLATELET COUNT 372 K/uL (152-353)
[2019-03-26 14:48] LABS: POTASSIUM 4.5 mmol/L (3.6-5.2)
== END 2019-03-26 22:36 | disposition home or self-care (01) ==
LOC: LABW 14:13
PROVIDERS: Internal Medicine
DX: E11.22 Type 2 diabetes mellitus with diabetic chronic kidney disease (principal); N18.3 Chronic kidney disease, stage 3 (moderate); E53.8 Deficiency of other specified B group vitamins; R82.998 Other abnormal findings in urine
CPT/HCPCS: 36415; 80053; 81000; 82306; 82330; 82570; 82607; 82652; 82746; 83036; 83735; 83970; 84100; 84155; 85027; 87077; 87086; 87088; 87186

== ENCOUNTER 2019-04-25 10:34 | Outpatient (CLI) | payer OTHER | END 2019-04-25 22:29 | disposition home or self-care (01) | LOC: MRI 10:34 | DX: R41.3 Other amnesia (principal); N61.1 Abscess of the breast and nipple ==

== ENCOUNTER 2019-05-18 13:06 | Emergency (ER) | payer OTHER ==
[~2019-05-18] VITALS: Ht 160 cm; Wt 128.8 kg
[2019-05-18 13:21] VITALS: TEMP 98.1
[2019-05-18 14:38] LABS: PLATELET COUNT 265 K/uL (152-353)
[2019-05-18 14:45] LABS: POTASSIUM 3.7 mmol/L (3.6-5.2)
[2019-05-18 18:18] VITALS: BP 108/43
== END 2019-05-18 18:50 | disposition short-term general hospital (02) ==
LOC: ED 13:06
PROVIDERS: Family Medicine
DX: R79.89 Other specified abnormal findings of blood chemistry (principal); Z90.710 Acquired absence of both cervix and uterus
CPT/HCPCS: 36415; 80053; 85027; 85379; 96374; 96375; 99284; J2175; J2405

== ENCOUNTER 2019-05-18 18:40 | Outpatient (CLI) | payer OTHER | END 2019-05-18 19:56 | disposition short-term general hospital (02) | LOC: AMB 18:40 | DX: R42 Dizziness and giddiness (principal); R79.89 Other specified abnormal findings of blood chemistry; Z90.710 Acquired absence of both cervix and uterus | CPT/HCPCS: A0425; A0427 ==

== ENCOUNTER 2019-05-20 23:46 | Emergency (ER) | payer OTHER ==
[~2019-05-20] VITALS: Ht 160 cm; Wt 128.8 kg
[2019-05-21 00:52] LABS: PLATELET COUNT 324 K/uL (152-353)
[2019-05-21 01:09] LABS: POTASSIUM 3.7 mmol/L (3.6-5.2)
[2019-05-21 02:35] VITALS: BP 158/97; TEMP 99.1
== END 2019-05-21 02:37 | disposition home or self-care (01) ==
LOC: ED 23:46
PROVIDERS: Hospitalist
DX: R10.84 Generalized abdominal pain (principal); K31.84 Gastroparesis; R11.2 Nausea with vomiting, unspecified; Z90.710 Acquired absence of both cervix and uterus
CPT/HCPCS: 36415; 80053; 81002; 82150; 83690; 85027; 96360; 96375; 99284; J2405

== ENCOUNTER 2019-08-23 15:33 | Outpatient (CLI) | payer OTHER | END 2019-08-23 22:26 | disposition home or self-care (01) | LOC: US 15:33 | DX: L02.212 Cutaneous abscess of back [any part, except buttock and flank] (principal) ==

== ENCOUNTER → 2019-09-06 | Outpatient (CLI) | payer OTHER | LOC: RAD 11:17 | DX: M17.11 Unilateral primary osteoarthritis, right knee (principal); M47.816 Spondylosis without myelopathy or radiculopathy, lumbar region ==

== ENCOUNTER 2019-10-09 09:10 | Emergency (ER) | payer OTHER ==
[~2019-10-09] VITALS: Ht 160 cm; Wt 123.4 kg
[2019-10-09 09:26] VITALS: BP 110/43; TEMP 99
[2019-10-09 10:10] LABS: PLATELET COUNT 254 K/uL (152-353)
[2019-10-09 10:16] LABS: POTASSIUM 3.9 mmol/L (3.6-5.2)
== END 2019-10-09 13:33 | disposition home or self-care (01) ==
LOC: ED 09:10
PROVIDERS: Family Medicine
DX: J12.9 Viral pneumonia, unspecified (principal); R05 Cough; Z20.828 Contact with and (suspected) exposure to other viral communicable diseases; E11.9 Type 2 diabetes mellitus without complications
CPT/HCPCS: 80053; 82728; 83605; 85027; 85379; 87040; 87502; 87635; 87651; 96365; 99284; J0456; Q9963; U0003

== ENCOUNTER 2019-10-30 13:07 | Outpatient (CLI) | payer OTHER | END 2019-10-30 20:59 | disposition home or self-care (01) | LOC: CT 13:07 | DX: R41.3 Other amnesia (principal); R51 Headache | CPT/HCPCS: 36415; 82565; 84520; Q9963 ==

== ENCOUNTER 2019-11-09 14:53 | Outpatient (CLI) | payer OTHER | END 2019-11-09 20:53 | disposition home or self-care (01) | LOC: MRI 14:53 | DX: G64 Other disorders of peripheral nervous system (principal); N18.9 Chronic kidney disease, unspecified ==

== ENCOUNTER 2019-11-11 06:35 | Emergency (ER) | payer OTHER ==
[~2019-11-11] VITALS: Ht 160 cm; Wt 137.4 kg
[2019-11-11 06:45] VITALS: BP 136/53; TEMP 98.8
[2019-11-11 07:57] LABS: PLATELET COUNT 225 K/uL (152-353)
[2019-11-11 08:02] LABS: POTASSIUM 3.9 mmol/L (3.6-5.2)
== END 2019-11-11 08:27 | disposition home or self-care (01) ==
LOC: ED 06:35
PROVIDERS: Emergency Medicine
DX: M25.512 Pain in left shoulder (principal); W18.39XA Other fall on same level, initial encounter; Y92.89 Other specified places as the place of occurrence of the external cause
CPT/HCPCS: 80053; 85027; 96372; 99283; J1885

== ENCOUNTER 2019-11-28 11:37 | Outpatient (CLI) | payer OTHER | END 2019-11-28 23:27 | disposition home or self-care (01) | LOC: RAD 11:37 | DX: M54.12 Radiculopathy, cervical region (principal) ==

== ENCOUNTER 2019-12-13 10:35 | Outpatient (CLI) | payer OTHER | END 2019-12-13 23:36 | disposition home or self-care (01) | LOC: RAD 10:35 | DX: R22.32 Localized swelling, mass and lump, left upper limb (principal) ==

== ENCOUNTER 2019-12-26 09:12 | Outpatient (CLI) | payer OTHER | END 2019-12-26 22:49 | disposition home or self-care (01) | LOC: CT 09:12 | DX: I73.89 Other specified peripheral vascular diseases (principal); I87.8 Other specified disorders of veins | CPT/HCPCS: 36415; 82565; 84520 ==

== ENCOUNTER 2020-01-11 15:03 | Outpatient (CLI) | payer OTHER | END 2020-01-11 20:40 | disposition home or self-care (01) | LOC: LAB 15:03 | DX: R19.7 Diarrhea, unspecified (principal) | CPT/HCPCS: 83630; 87015; 87045; 87324; 87328; 87329; 87449; 87899 ==

== ENCOUNTER 2020-02-02 21:16 | Emergency (ER) | payer OTHER ==
[~2020-02-02] VITALS: Ht 160 cm; Wt 123.4 kg
[2020-02-02 22:30] VITALS: BP 148/70; TEMP 97.8
== END 2020-02-02 22:30 | disposition home or self-care (01) ==
LOC: ED 21:16
DX: H10.89 Other conjunctivitis (principal); H20.9 Unspecified iridocyclitis
CPT/HCPCS: 99283

== ENCOUNTER 2020-05-16 10:34 | Outpatient (CLI) | payer OTHER | END 2020-05-16 20:55 | disposition home or self-care (01) | LOC: CT 10:34 | PROVIDERS: ATTEND Nurse Practitioner Family | DX: R46.89 Other symptoms and signs involving appearance and behavior (principal); R41.82 Altered mental status, unspecified; S09.8XXA Other specified injuries of head, initial encounter ==

== ENCOUNTER 2020-07-11 06:03 | Emergency (ER) | payer OTHER ==
[~2020-07-11] VITALS: Ht 160 cm; Wt 149.7 kg
[2020-07-11 06:06] VITALS: TEMP 97.9
[2020-07-11 07:04] LABS: PLATELET COUNT 293 K/uL (152-353)
[2020-07-11 07:12] LABS: POTASSIUM 3.9 mmol/L (3.6-5.2); SODIUM 135 mmol/L (136-145)
[2020-07-11 08:06] VITALS: BP 106/78
== END 2020-07-11 08:25 | disposition home or self-care (01) ==
LOC: ED 06:03
PROVIDERS: Emergency Medicine Emergency Medical Services
DX: A08.39 Other viral enteritis (principal)
CPT/HCPCS: 80053; 83690; 84484; 85027; 96360; 96375; 99284; J2405

== ENCOUNTER 2020-07-19 04:53 | Observation (INO) | payer OTHER ==
[2020-07-19] VITALS (7 sets, daily range): BP systolic 109–204; BP diastolic 56–97; TEMP 97.2–98.8; Ht 160 cm; Wt 121.1 kg
[~2020-07-19] VITALS: Ht 160 cm; Wt 121.1 kg
[2020-07-19 05:52] LABS: PLATELET COUNT 181 K/uL (152-353)
--- NOTE | 2020-07-19 12:30 | NUR ---
LIST OF PT'S HOME MEDS OBTAINED FROM [facility]. PT DROWSY AT TIME OF ADMISSION UNABLE TO ANSWER OR PROVIDE ANY INFOMR AT THIS TIME. DR MCMAHON AWARE. WILL ATTEMPT TO ASK PT ABOUT INSULIN AND DOSAGE WHEN SHE BECOMES MORE AWAKE.
[2020-07-19 15:12] LABS: PLATELET COUNT 230 K/uL (152-353)
--- NOTE | 2020-07-19 16:00 | NUR ---
DR MCMAHON CALLED AND INFORMED OF BLOOD SUGAR OF 460. NEW ORDERS REC'D TO GIVE 10 UNITS OF HUM R 10 UNITS SQ NOW
[2020-07-19] MEDS ORDERED: QUETIAPINE25 MG PO (16:47)
[2020-07-19] MEDS ORDERED: OZEMPIC2 MG/1.5 M SC (16:52)
[2020-07-19] MEDS ORDERED: TRAMADOL HYDROC50 MG PO (16:54)
[2020-07-19] MEDS ORDERED: PROPRANOLOL80 MG PO (16:58)
[2020-07-19] MEDS ORDERED: DILT-XR180 MG PO (17:00)
[2020-07-19] MEDS ORDERED: IMITREX100 MG PO (17:02)
[2020-07-19] MEDS ORDERED: FURO40TA93 PO (17:03)
[2020-07-19] MEDS ORDERED: ALLO100T22 PO (17:04)
[2020-07-19] MEDS ORDERED: GABA400C2 PO ×2 (17:05→17:06)
--- NOTE | 2020-07-19 21:04 | NUR ---
PT CRYING LOUDLY SINCE ARRIVED WANTS HIM TO STAY WITH HER TONIGHT, ANXIOUS AND C/O NAUSEA. NOTE PT MOSTLY GAGGING BUT NOTE SOME THICK CLEAR LIQUID AND ALSO THICK CREAM COLORED(APPEARS TO BE SPUTUM) LIQUID IN EMESIS BASIN. GAVE ZOFRAN 4MG SLOW IVP PRN FOR NAUSEA. REASSURED PT, ENCOURAGED TO CALL NEEDED, RAILS UP X3, BED IN LOW POSITION WITH ALARM ON, CALL LIGHT IN REACH. INSTRUCTED PT NOT TO DRINK ANYTHING SINCE SHE IS HAVING NAUSEA.
--- NOTE | 2020-07-19 21:25 | NUR ---
PT REMAINS ANXIOUS AND SOBBING OFF AND ON. C/O "CRAMPING" PAIN TO MID UPPER ABD(NOTE PT HAS BEEN GAGGING ADMITTED WITH N/V) RATES PAIN AN 8 ON SCALE OF 0-10. GAVE MORPHINE 2MG IVP PRN FOR PAIN. REMAINS AT BEDSIDE, WILL MONITOR CLOSELY. PT REASSURED OFTEN DUE TO UPSET AND ANXIOUS. RAILS UP X3, BED IN LOW POSITION WITH ALARM ON, CALL LIGHT IN REACH.
--- NOTE | 2020-07-19 22:30 | NUR ---
RESTING IN BED ON R SIDE WITH EYES CLOSED AND SNORING NOTED, NO S/S OF PAIN OR DISTRESS NOTED, WILL MONITOR, RAILS UP, BED IN LOW POSITION, WITH ALARM ON, CALL LIGHT IN REACH.
[2020-07-20] VITALS: BP 134/75; TEMP 98.6
--- NOTE | 2020-07-20 00:54 | NUR ---
RESTING IN BED WITH EYES CLOSED AND SNORING NOTED, NO S/S OF PAIN DISTRESS OR N/V NOTED AT THIS TIME, RESP RATE NONLABORED, TELEMETRY IN USE WITH RATE OF 106, 22G IV INTACT TO L HAND WITH NS INFUSING, WILL MONITOR, RAILS UP, BED IN LOW POSITION, BED ALARM ON, CALL LIGHT IN REACH.
[2020-07-20 02:00] VITALS: BP 134/75; TEMP 98.6
--- NOTE | 2020-07-20 02:20 | NUR ---
PT AWAKE SITTING UP IN BED STATES SHE IS FEELING BETTER, TALKING ON PHONE WITH HER DAUGHTER, RESP RATE NONLABORED ON ROOM AIR, 22G IV INTACT TO L HAND, TELEMETRY IN USE. STATES SHE WANTS A FEW SIPS OF WATER(PT WAS INSTRUCTED NO TO DRINK EARLIER WHILE SHE WAS NAUSEATED) SINCE SHE IS NO LONGER NAUSEATED. PT TOLERATED FEW SIPS OF WATER WITH NO N/V AT THIS TIME. WILL MONITOR CLOSELY, RAILS UP, BED IN LOW POSITION, CALL LIGHT IN REACH, BED ALARM ON.
[2020-07-20 04:00] VITALS: BP 192/88; TEMP 98.5
--- NOTE | 2020-07-20 04:26 | NUR ---
PT CONTINUES TO GAG AND HAVE NAUSEA. CALL DR. MCMAHON ABOUT PT'S STATUS. NEW TELEPHONE ORDER FOR REGLAN 10MG IV Q 8 HOURS TO START NOW, BENADRYL 50MG IV X 1 DOSE NOW. T.O. R&V.
--- NOTE | 2020-07-20 05:25 | NUR ---
sent to complete an assessment. Uncontrolled DM, and is on a CLD and need to advnace to a FLD and then a Diabetic HIGH FIBER Renal diet plan and is 63" at 267 lbs and is a 45 YOF and has a BKA, Left and right partial foot amputation and IBW = 108+/-10% (97 to 119) and kcal needs for AIBW x 25 = 1300. x 30 = 1500, x 35 = 1700, and x 40 = 2000 l/cc per day/q 24 hours. Protein needs x 1.0 = 49, x 1.1 = 54 grams and x 1.2 = 59 grams, x 1.3 = 64 grams, x 1.4 = 69 grams and x 1.5 = 74 grams per day and fluids x 25 = 1300, x 30 = 1500, x 35 = 1700 and 40 = 2000 ml/cc per day.Labs reveal Hgb, Na, Cl, APTT, AST, and lipase are all depressed and RDW, gl 460 to 499, 672, 700, PCO2, HCO3, ABG, T. Protein, Alk Po4, Bun and creat all elevated and is on SSI coverage, Kcl, and see MD's notes an dhistory and admitted with N/V/D and then the patient denies diarrhea, epigastric pain, abdominla pain, and a history of DM, high cholesterolm HTN, renal and thyroid disease. OT is working iwht the patient per order. RD Recommendations: 1-Monitor labs 2-PT to work with the patient 3-Make sure hydrated and increase fluids as tolerated and as approved by the MD 4-CLD advnace after 24 hours 5-Advance to a FLD and should not be on >48 hours 6-Advnace to a NCS High Fiber Renal diet plan and if won't follow have a 7-Dietary Refusal Form signed
[2020-07-20 07:22] LABS: PLATELET COUNT 227 K/uL (152-353)
[2020-07-20 07:47] LABS: POTASSIUM 3.6 mmol/L (3.6-5.2)
[2020-07-20 08:00] VITALS: BP 182/94; TEMP 98.3
--- NOTE | 2020-07-20 09:00 | NUR ---
REPORTED MORNING LABS AND BLOOD PRESSURE TO DR. MCMAHON DUE TO BLOOD PRESSURE BEING ELEVATED, DR. MCMAHON ORDERS FOR A ONE TIME DOSE OF 20MEQ KCL PO NOW AND TO RESTART HER HOME MEDICATIONS EXCEPT FOR TRAMADOL AND IMITREX, NO FURTHER ORDERS GIVEN AT THIS TIME
[2020-07-20] MEDS ORDERED: HUMULIN R500 UNIT/1 SC (10:36)
[2020-07-20 12:00] VITALS: BP 184/102; TEMP 98.1
--- NOTE | 2020-07-20 14:53 | NUR ---
DC INSTRUCTIONS GIVEN AND EXPLAINED TO AND PT, VERABLIZED UNDERSTANDING, PT IS SLEEPING AT THIS TIME, INSTRUCTED FOR PT TO FOLLOWUP WITH DR. MCMAHON ON Tuesday07/22/20 AT 1130, ALSO FOR PT TO STOP TAKING TRAMADOL AND IMITREX UNTIL DR. MCMAHON STATES OTHERWISE, INSTRUCTED FOR PT TO EAT A BLAND DIET WITH SOFT FOODS AND TO NOT DRINK ANY CARBONATED BEVERAGES, VERBALZIED UNDERSTANDING, IV REMOVED WITH CATHETER INTACT, PT DC VIA WHEELCHAIR WITH TO PERSONAL VEHICLE, NAD NOTED
== END 2020-07-20 15:22 | disposition home or self-care (01) ==
LOC: ED 04:53 → MED/SURG 10:33
PROVIDERS: Family Medicine; ADMIT Family Medicine; ATTEND Family Medicine
DX: E11.65 Type 2 diabetes mellitus with hyperglycemia (principal); I10 Essential (primary) hypertension; E86.0 Dehydration; R11.2 Nausea with vomiting, unspecified; I25.10 Atherosclerotic heart disease of native coronary artery without angina pectoris; E03.8 Other specified hypothyroidism; R19.7 Diarrhea, unspecified
CPT/HCPCS: 36415; 36600; 80048; 80053; 81000; 81002; 82150; 82271; 82805; 82947; 83690; 83735; 83986; 84100; 85007; 85027; 85610; 85730; 87635; 94760; 96361; 96365; 96375; 96376; 99220; 99284; G0378; J1200; J1650; J1815; J2060; J2270; J2405; J2550; J2765; J3490; U0003

== ENCOUNTER 2020-07-22 15:20 | Emergency (ER) | payer OTHER ==
[~2020-07-22] VITALS: Ht 160 cm; Wt 121.1 kg
[~2020-07-22 15:20] MED LIST changes: +ALLO100T22 PO; +DILT-XR180 MG PO; +FURO40TA93 PO; +GABA400C2 PO; +HUMULIN R500 UNIT/1 SC; +IMITREX100 MG PO; +OZEMPIC2 MG/1.5 M SC; +PROPRANOLOL80 MG PO; +QUETIAPINE25 MG PO; +TRAMADOL HYDROC50 MG PO
[2020-07-22 16:13] LABS: PLATELET COUNT 311 K/uL (152-353)
[2020-07-22 16:19] LABS: POTASSIUM 3.1 mmol/L (3.6-5.2)
[2020-07-22 17:30] VITALS: BP 130/88; TEMP 98
== END 2020-07-22 17:30 | disposition home or self-care (01) ==
LOC: ED 15:20
PROVIDERS: Family Medicine
DX: E11.649 Type 2 diabetes mellitus with hypoglycemia without coma (principal); E11.65 Type 2 diabetes mellitus with hyperglycemia; Z79.4 Long term (current) use of insulin
CPT/HCPCS: 80053; 82948; 85027; 99283

== ENCOUNTER 2020-07-23 11:17 | Outpatient (CLI) | payer OTHER ==
[2020-07-23 11:29] LABS: PLATELET COUNT 264 K/uL (152-353)
[2020-07-23 11:47] LABS: POTASSIUM 3.3 mmol/L (3.6-5.2)
== END 2020-07-23 19:21 | disposition home or self-care (01) ==
LOC: LABW 11:17
PROVIDERS: ATTEND Nurse Practitioner Family
DX: E11.65 Type 2 diabetes mellitus with hyperglycemia (principal)
CPT/HCPCS: 36415; 80053; 85027

== ENCOUNTER 2020-10-06 12:25 | Emergency (ER) | payer OTHER ==
[~2020-10-06] VITALS: Ht 160 cm; Wt 121.1 kg
[2020-10-06 12:32] VITALS: TEMP 98.8
[2020-10-06 13:19] LABS: PLATELET COUNT 204 K/uL (152-353)
[2020-10-06 13:22] LABS: POTASSIUM 3.9 mmol/L (3.6-5.2)
[2020-10-06 16:33] VITALS: BP 124/84
== END 2020-10-06 16:33 | disposition home or self-care (01) ==
LOC: ED 12:25
PROVIDERS: Emergency Medicine
DX: B34.9 Viral infection, unspecified (principal); E11.65 Type 2 diabetes mellitus with hyperglycemia; Z79.4 Long term (current) use of insulin; E66.8 Other obesity
CPT/HCPCS: 80048; 85027; 96360; 96374; 96375; 99284; J1815

== ENCOUNTER 2020-11-05 12:01 | Outpatient (CLI) | payer OTHER ==
[2020-11-05 13:01] LABS: POTASSIUM 4.1 mmol/L (3.6-5.2)
[2020-11-05 13:21] LABS: PLATELET COUNT 252 K/uL (152-353)
[2020-11-05 13:51] LABS: PARTIAL THROMBOPLASTIN TIME 25.4 SECONDS (24.5-33.6)
== END 2020-11-05 21:13 | disposition home or self-care (01) ==
LOC: LABW 12:01
PROVIDERS: ATTEND Dentist Oral and Maxillofacial Surgery
DX: Z01.810 Encounter for preprocedural cardiovascular examination (principal)
CPT/HCPCS: 36415; 80053; 85027; 85610; 85730; 93005

== ENCOUNTER 2020-11-07 09:04 | Outpatient (CLI) | payer OTHER | END 2020-11-07 19:04 | disposition home or self-care (01) | LOC: MRI 09:04 | PROVIDERS: ATTEND Urology | DX: M51.36 Other intervertebral disc degeneration, lumbar region (principal) ==

== ENCOUNTER 2020-11-25 16:10 | Outpatient (CLI) | payer OTHER ==
[2020-11-25 16:35] LABS: PLATELET COUNT 348 K/uL (152-353)
[2020-11-25 16:48] LABS: POTASSIUM 3.9 mmol/L (3.6-5.2)
== END 2020-11-25 20:45 | disposition home or self-care (01) ==
LOC: RAD 16:10
PROVIDERS: ATTEND Nurse Practitioner Family
DX: E78.2 Mixed hyperlipidemia (principal); M25.561 Pain in right knee
CPT/HCPCS: 36415; 80053; 80061; 84550; 85027

== ENCOUNTER 2021-02-19 09:10 | Outpatient (CLI) | payer OTHER | END 2021-02-19 18:57 | disposition home or self-care (01) | LOC: RAD 09:10 | PROVIDERS: ATTEND Nurse Practitioner Primary Care | DX: M25.561 Pain in right knee (principal) ==

== ENCOUNTER 2021-04-02 09:42 | Outpatient (CLI) | payer OTHER | END 2021-04-02 19:08 | disposition home or self-care (01) | LOC: US 09:42 | PROVIDERS: ATTEND Nurse Practitioner Family | DX: M79.604 Pain in right leg (principal) ==

== ENCOUNTER 2021-07-16 10:34 | Outpatient (CLI) | payer OTHER | END 2021-07-16 22:07 | disposition home or self-care (01) | LOC: MAMMO 10:34 | PROVIDERS: ATTEND Family Medicine | DX: Z12.31 Encounter for screening mammogram for malignant neoplasm of breast (principal); M25.551 Pain in right hip ==

== ENCOUNTER 2021-10-17 13:19 | Emergency (ER) | payer OTHER ==
[~2021-10-17] VITALS: Ht 160 cm; Wt 121.1 kg
[2021-10-17 13:35] VITALS: BP 112/60; TEMP 97.3
[2021-10-17 13:54] LABS: PLATELET COUNT 337 K/uL (152-353)
[2021-10-17 14:04] LABS: POTASSIUM 3.2 mmol/L (3.6-5.2)
== END 2021-10-17 17:32 | disposition home or self-care (01) ==
LOC: ED 13:19
PROVIDERS: Emergency Medicine
DX: E11.649 Type 2 diabetes mellitus with hypoglycemia without coma (principal); Z79.4 Long term (current) use of insulin; R51.9 Headache, unspecified
CPT/HCPCS: 80053; 84484; 85027; 99283; J2270; J2405

== ENCOUNTER 2021-11-19 10:43 | Emergency (ER) | payer OTHER ==
[~2021-11-19] VITALS: Ht 160 cm; Wt 121.1 kg
[2021-11-19 11:09] LABS: POTASSIUM 4.9 mmol/L (3.6-5.2)
[2021-11-19 11:47] LABS: PLATELET COUNT 184 K/uL (152-353)
[2021-11-19 12:32] VITALS: BP 128/62; TEMP 98
== END 2021-11-19 12:33 | disposition home or self-care (01) ==
LOC: ED 10:43
PROVIDERS: Emergency Medicine
DX: E11.649 Type 2 diabetes mellitus with hypoglycemia without coma (principal); Z79.4 Long term (current) use of insulin; B37.89 Other sites of candidiasis; Z20.822 Contact with and (suspected) exposure to COVID-19; R60.0 Localized edema
CPT/HCPCS: 80053; 81002; 82550; 82948; 83735; 83880; 84484; 85027; 87635; 93005; 96360; 96361; 99284; U0003

== ENCOUNTER 2021-11-24 08:46 | Outpatient (CLI) | payer OTHER ==
[~2021-11-24] VITALS: Ht 165.1 cm; Wt 121.1 kg
== END 2021-11-24 18:47 | disposition home or self-care (01) ==
LOC: NM 08:46
PROVIDERS: ATTEND Nurse Practitioner Adult Health
DX: I10 Essential (primary) hypertension (principal); R07.89 Other chest pain; R94.39 Abnormal result of other cardiovascular function study; R00.2 Palpitations
CPT/HCPCS: A9500; J2785

== ENCOUNTER 2022-04-14 16:50 | Emergency (ER) | payer OTHER ==
[~2022-04-14] VITALS: Ht 160 cm; Wt 107.0 kg
[2022-04-14 16:58] VITALS: BP 101/46; TEMP 97.3
== END 2022-04-14 19:00 | disposition home or self-care (01) ==
LOC: ED 16:50
DX: S00.03XA Contusion of scalp, initial encounter (principal); J32.0 Chronic maxillary sinusitis; M25.552 Pain in left hip; M25.551 Pain in right hip; W07.XXXA Fall from chair, initial encounter; Y92.89 Other specified places as the place of occurrence of the external cause
CPT/HCPCS: 99283

== ENCOUNTER 2022-04-15 12:29 | Outpatient (CLI) | payer OTHER | END 2022-04-15 19:51 | disposition home or self-care (01) | LOC: RAD 12:29 | PROVIDERS: ATTEND Nurse Practitioner Adult Health | DX: M79.604 Pain in right leg (principal) ==

== ENCOUNTER 2022-04-21 18:08 | Emergency (ER) | payer OTHER ==
[~2022-04-21] VITALS: Ht 160 cm; Wt 107.0 kg
[2022-04-21 18:14] VITALS: TEMP 98.1
[2022-04-21 19:44] LABS: PLATELET COUNT 465 K/uL (152-353)
[2022-04-21 19:54] LABS: POTASSIUM 4.4 mmol/L (3.6-5.2)
[2022-04-21 20:50] VITALS: BP 174/86
== END 2022-04-21 20:50 | disposition left against medical advice (07) ==
LOC: ED 18:08
PROVIDERS: Emergency Medicine Emergency Medical Services
DX: R20.2 Paresthesia of skin (principal); Z53.29 Procedure and treatment not carried out because of patient's decision for other reasons; Z79.82 Long term (current) use of aspirin; Z51.81 Encounter for therapeutic drug level monitoring
CPT/HCPCS: 36415; 80048; 80307; 81000; 84484; 85027; 96361; 96374; 99284; J2405

== ENCOUNTER 2022-07-12 16:58 | Outpatient (CLI) | payer OTHER | END 2022-07-12 19:02 | disposition home or self-care (01) | LOC: RESP 16:58 | PROVIDERS: ATTEND Family Medicine | DX: Z01.89 Encounter for other specified special examinations (principal) | CPT/HCPCS: 93005 ==

== ENCOUNTER 2022-08-11 16:54 | Observation (INO) | payer OTHER ==
[~2022-08-11] VITALS: Ht 160 cm; Wt 131.6 kg
[2022-08-11] VITALS (9 sets, daily range): BP systolic 95–163; BP diastolic 39–79; TEMP 98
[2022-08-11 17:13] LABS: PLATELET COUNT 406 K/uL (152-353)
[2022-08-11 17:29] LABS: PARTIAL THROMBOPLASTIN TIME 34.2 SECONDS (23.9-36.7)
[2022-08-11 17:32] LABS: POTASSIUM 4.2 mmol/L (3.6-5.2); SODIUM 138 mmol/L (136-145)
[2022-08-12 04:00] VITALS: BP 95/45; TEMP 98.7
[2022-08-12 04:14] VITALS: BP 125/66; TEMP 98; Ht 160 cm; Wt 131.6 kg
[2022-08-12 08:00] VITALS: BP 109/59; TEMP 98.7
[2022-08-12 08:11] LABS: POTASSIUM 4.2 mmol/L (3.6-5.2)
[2022-08-12 08:32] LABS: PLATELET COUNT 295 K/uL (152-353)
[2022-08-12] MEDS ORDERED: HYDR10TA51 PO (10:41)
[2022-08-12] MEDS ORDERED: CARV6.25 PO (10:41)
[2022-08-12] MEDS ORDERED: AMLODIPINE PO (10:44)
[2022-08-12] MEDS ORDERED: PROPRANOLOL ER PO (10:47)
[2022-08-12] MEDS ORDERED: VITAMIN D50000 UNIT PO (10:48)
[2022-08-12] MEDS ORDERED: COZAAR100 MG PO (10:48)
[2022-08-12] MEDS ORDERED: MONT10TA PO (10:49)
[2022-08-12] MEDS ORDERED: XYZAL ALLERGY 245 MG PO (10:49)
[2022-08-12] MEDS ORDERED: SIMV20TA2 PO (10:50)
[2022-08-12] MEDS ORDERED: FENOFIBRATE54 MG PO (10:50)
[2022-08-12] MEDS ORDERED: JARDIANCE25 MG PO (10:51)
[2022-08-12 12:08] VITALS: BP 109/59; TEMP 98.7
[2022-08-12 16:00] VITALS: BP 174/69; TEMP 98.5
[2022-08-12 20:00] VITALS: BP 157/69; TEMP 99.5
[2022-08-13 00:27] VITALS: BP 145/57; TEMP 98.9
[2022-08-13 04:00] VITALS: BP 147/71; TEMP 98.9
[2022-08-13 08:00] VITALS: BP 170/77; TEMP 99.1
[2022-08-13] MEDS ORDERED: HUMULIN R500 UNIT/1 SC (12:04)
== END 2022-08-13 12:58 | disposition home or self-care (01) ==
LOC: ED 16:54 → MED/SURG 23:30
PROVIDERS: ADMIT Emergency Medicine; ATTEND Internal Medicine
DX: G93.41 Metabolic encephalopathy (principal); E11.649 Type 2 diabetes mellitus with hypoglycemia without coma; E11.40 Type 2 diabetes mellitus with diabetic neuropathy, unspecified; Z79.4 Long term (current) use of insulin; R41.82 Altered mental status, unspecified; E66.01 Morbid (severe) obesity due to excess calories; Z68.43 Body mass index [BMI] 50.0-59.9, adult; G62.9 Polyneuropathy, unspecified
CPT/HCPCS: 36600; 80053; 80143; 80179; 80307; 80320; 81002; 82805; 83880; 84484; 85027; 85379; 85610; 85730; 93005; 96365; 96366; 96375; 96376; 99221; 99284; G0378; J1885; J2310; J7060

== ENCOUNTER 2022-09-18 11:15 | Emergency (ER) | payer OTHER ==
[~2022-09-18] VITALS: Ht 160 cm; Wt 95.3 kg
[2022-09-18 11:15] VITALS: BP 157/110; TEMP 98.4
[~2022-09-18 11:15] MED LIST changes: +AMLODIPINE PO; +CARV6.25 PO; +FENOFIBRATE54 MG PO; +HYDR10TA51 PO; +JARDIANCE25 MG PO; +MONT10TA PO; +PROPRANOLOL ER PO; +VITAMIN D50000 UNIT PO; +XYZAL ALLERGY 245 MG PO
== END 2022-09-18 15:17 | disposition home or self-care (01) ==
LOC: ED 11:15
DX: L30.8 Other specified dermatitis (principal)
CPT/HCPCS: 96367; 96374; 96375; 99284; J1200; J2930

== ENCOUNTER 2022-09-23 15:10 | Outpatient (CLI) | payer OTHER ==
[2022-09-23 15:30] LABS: POTASSIUM 3.4 mmol/L (3.6-5.2)
[2022-09-23 15:34] LABS: PLATELET COUNT 321 K/uL (152-353)
== END 2022-09-23 22:33 | disposition home or self-care (01) ==
LOC: LABW 15:10
PROVIDERS: ATTEND Nurse Practitioner Family
DX: Z01.818 Encounter for other preprocedural examination (principal)
CPT/HCPCS: 36415; 80048; 85027; 93005

== ENCOUNTER 2022-11-11 09:54 | Outpatient (CLI) | payer OTHER | END 2022-11-11 19:57 | disposition home or self-care (01) | LOC: MAMMO 09:54 | PROVIDERS: ATTEND Nurse Practitioner Family | DX: N64.4 Mastodynia (principal) | CPT/HCPCS: G0279 ==

== ENCOUNTER 2022-12-09 10:03 | Outpatient (CLI) | payer OTHER ==
[2022-12-09 11:31] LABS: PLATELET COUNT 238 K/uL (152-353)
[2022-12-09 11:41] LABS: POTASSIUM 4.1 mmol/L (3.6-5.2)
== END 2022-12-09 19:36 | disposition home or self-care (01) ==
LOC: US 10:03
PROVIDERS: ATTEND Nurse Practitioner Family
DX: R60.0 Localized edema (principal)
CPT/HCPCS: 36415; 80053; 82550; 82553; 83880; 84484; 85027; 85379

== ENCOUNTER 2022-12-21 16:57 | Outpatient (CLI) | payer OTHER | END 2022-12-21 19:46 | disposition home or self-care (01) | LOC: RAD 16:57 | PROVIDERS: ATTEND Nurse Practitioner Family | DX: M25.531 Pain in right wrist (principal) ==

== ENCOUNTER 2022-12-23 09:37 | Outpatient (CLI) | payer OTHER | END 2022-12-23 19:09 | disposition home or self-care (01) | LOC: RAD 09:37 → RESP 09:37 | PROVIDERS: ATTEND Nurse Practitioner Family | DX: J45.909 Unspecified asthma, uncomplicated (principal) ==